=== PATIENT | female | born 1970 | race Caucasian/White ===

== ENCOUNTER 2021-04-20 06:55 | Day surgery (SDC) | payer SELFPAY ==
[2021-04-09 13:11] VITALS: BMI 24.0
[2021-04-20] MEDS ORDERED: EPINEPHrine/PF 1 MG/1 ML (1:1,000) AMPULE ONE (07:54)
[2021-04-20] MEDS ORDERED: BUPIVACAINE HCL/PF 0.25% (2.5MG/ML) 10 ML VIAL ONE (07:54)
[2021-04-20] MEDS ORDERED: BUPIVACAINE HCL/PF 2.5 MG/ML - 30 ML VIAL IJ ONE (07:55)
[2021-04-20] MEDS ORDERED: BACITRACIN 15 GM TUBE TOPICAL OINTMENT ONE (07:55)
[2021-04-20] MEDS ORDERED: KETOROLAC TROMETHAMINE 30 MG/1 ML VIAL ONE (09:05)
[2021-04-20] MEDS ORDERED: fentaNYL CITRATE 250 MCG/5 ML VIAL ONE ×2 (09:05→13:37)
[2021-04-20] MEDS ORDERED: PROPOFOL 20 ML ONE ×4 (09:05→15:59)
[2021-04-20] MEDS ORDERED: MIDAZOLAM HCL 2 MG/2 ML SINGLE DOSE VIAL ONE (09:05)
[2021-04-20] MEDS ORDERED: ONDANSETRON 4 MG/2 ML VIAL ONE ×2 (09:05→15:35)
[2021-04-20] MEDS ORDERED: DEXAMETHASONE SOD PHOSPHATE 4 MG/1 ML VIAL ONE ×2 (09:05→15:35)
[2021-04-20] MEDS ORDERED: ceFAZolin SODIUM 1 GM VIAL ONE ×2 (09:05→13:37)
[2021-04-20] MEDS ORDERED: BUPIVACAINE LIPOSOME/PF (EXPAREL) 266 MG/20 ML VIAL ONE (09:06)
[2021-04-20] MEDS ORDERED: HEPARIN NA (PORCINE) 5,000 UNITS/ML 1ML VIAL ONE (09:19)
[2021-04-20] MEDS ORDERED: HEPARIN NA (PORCINE) 5,000 UNITS/ML 1ML VIAL SQ ONE (09:40)
[2021-04-20] MEDS ORDERED: ePHEDrine SULFATE 50 MG/1 ML AMPULE ONE (10:35)
[2021-04-20] MEDS ORDERED: NEOSTIGMINE METHYLSULFATE 0.5 MG/1 ML - 10 ML MDV ONE (15:06)
[2021-04-20] MEDS ORDERED: GLYCOPYRROLATE 0.2 MG/1 ML VIAL ONE (15:35)
[2021-04-20] MEDS ORDERED: DESFLURANE GAS 240 ML BOTTLE IH ONE (15:35)
[2021-04-20] MEDS ORDERED: ONDANSETRON 4 MG/2 ML VIAL IVPUSH PRN (16:32)
[2021-04-20] MEDS ORDERED: ONDANSETRON 4 MG/2 ML VIAL IVPB PRN (16:37)
[2021-04-20] MEDS ORDERED: MORPHINE SULFATE 2 MG/ML VIAL IVPUSH PRN (16:37)
[2021-04-20] MEDS ORDERED: LACTATED RINGERS SOLUTION 1,000 ML IV SCH ×2 (16:45)
[2021-04-20] MEDS: CEFAZOLIN 1 GM/D5W 1 GM/50 ML BAG IVPB SCH (19:50)
[2021-04-20] MEDS: oxyCODONE HCL 5 MG TABLET PO PRN ×2 (20:04→23:42)
[2021-04-21] MEDS: CEFAZOLIN 1 GM/D5W 1 GM/50 ML BAG IVPB SCH ×2 (01:22→07:56)
[2021-04-21] MEDS: oxyCODONE HCL 5 MG TABLET PO PRN ×2 (05:29→08:02)
[2021-04-21 06:34] VITALS: TEMP 98.3
[2021-04-21] MEDS ORDERED: HEPARIN NA (PORCINE) 5,000 UNITS/ML 1ML VIAL SQ SCH (08:00)
[2021-04-21 08:11] VITALS: BP 99/55; PULSE 70
== END 2021-04-21 09:56 | disposition home or self-care (01) ==
LOC: FASU 06:55 → FASUSAT 06:55 → FM/S 16:37 → FASUSAT 04-21 09:56
PROVIDERS: ATTEND Plastic Surgery
PROC: 0H0V0ZZ Alteration of Bilateral Breast, Open Approach (ICD-10-PCS; principal; 2021-04-20 10:06)
PROC: 0J080ZZ Alteration of Abdomen Subcutaneous Tissue and Fascia, Open Approach (ICD-10-PCS; 2021-04-20 10:06)
PROC: 0J083ZZ Alteration of Abdomen Subcutaneous Tissue and Fascia, Percutaneous Approach (ICD-10-PCS; 2021-04-20 10:06)
DX: N64.81 Ptosis of breast (principal); E88.1 Lipodystrophy, not elsewhere classified
CPT/HCPCS: 84703; 88304-TC; 88305-TC; 88313-TC; 88342-TC; 94760; J1644